=== PATIENT | female | born 1960 | race Caucasian/White ===

== ENCOUNTER 2017-01-23 10:56 | Emergency (ER) | payer OTHER ==
[~2017-01-23] VITALS: Ht 165.1 cm; Wt 90.3 kg
[~2017-01-23 10:56] MED LIST: CYCLOBENZAPRINE10 M1 PO; MEDROL4 M2 PO; PERCOCET 5-3251 EACH PO
[2017-01-23 11:00] VITALS: BP 128/85
--- NOTE | 2017-01-23 11:22 | ED THROAT/DENTAL COMPLAINT ---
History of Present Illness General Chief Complaint: Skin Rash/ Abcess Stated Complaint: ABCESS? INSIDE L SIDE OF MOUTH Source: patient, old records Exam Limitations: no limitations Vital Signs & Intake/Output Vital Signs & Intake/Output Vital Signs Date Time Temp Pulse Resp B/P B/P Pulse O2 O2 Flow FiO2 Mean Ox Delivery Rate 01/23 1100 97.4 116 20 128/85 97 Room Air Allergies Coded Allergies: tetanus and diphtheria toxoids (TETANUS & DIPHTHERIA TOXOIDS) (UNKNOWN 04/30/16) Reconcile Medications Amoxicillin 875 MG TABLET 1 TAB PO BID dental abscess Cyclobenzaprine HCl 10 MG TABLET 1 TAB PO TID PRN MUSCLE RELAXANT MAY CAUSE DROWSINESS Ibuprofen 600 MG TABLET 1 TAB PO Q6PRN PRN pain with food Methylprednisolone. (Medrol) 4 MG TAB.DS.PK 1 DP PO AD INFLAMMATION/back pain Oxycodone HCl/Acetaminophen (Percocet 5-325 MG Tablet) 1 EACH TABLET 1 TAB PO Q6H PRN PAIN Oxycodone HCl/Acetaminophen (Percocet 5-325 MG Tablet) 5 MG-325 MG TABLET 1-2 TAB PO 4 TIMES/DAY PRN sever pain Triage Note: PT STATES SHE THINKS SHE HAS AN ABSCESS LEFT SIDE OF MOUTH. PT STATES SHE DOESN'T HAVE A DENTIST. PAIN HAS BEEN INCREASING FOR THE PAST 3 DAYS Triage Nurses Notes Reviewed? yes Onset: Last week Duration: day(s):, constant, continues in ED Timing: remote history Injury Environment: home Severity: severe Modifying Factors: Improves With: medication. Worsens With: eating. LMP (ages 10-50): post menopausal : No Patient currently breastfeeds: No HPI: Patient reports having long standing dental issues reporting she was to have all her teeth extracted. 3 days [employer] she complains of increasing pain to the left upper molars with increasing swelling and redness to her cheek radiating to her left ear. She denies fever, chills, nausea, vomiting, diarrhea, abdominal pain, chest pain , shortness of breath, dysuria, headache, bleeding. Past History Travel History Traveled to [place] past 21 day No Medical History Any Pertinent Medical History? see below for history Musculoskeletal: CHRONIC BACK PAIN Surgical History Surgical History: tubal ligation Psychosocial History What is your primary language Samoan Tobacco Use: Quit >30 days ago ETOH Use: occasional use Illicit Drug Use: denies illicit drug use Family History Hx Contributory? No Review of Systems Review of Systems Constitutional: Reports: no symptoms. EENTM: Reports: see HPI, ear pain, mouth pain, tooth pain. Respiratory: Reports: no symptoms. Cardiovascular: Reports: no symptoms. GI: Reports: no symptoms. Genitourinary: Reports: no symptoms. Musculoskeletal: Reports: no symptoms. Skin: Reports: see HPI. Neurological/Psychological: Reports: no symptoms. Hematologic/Endocrine: Reports: no symptoms. Immunologic/Allergic: Reports: no symptoms. All Other Systems: Reviewed and Negative Physical Exam Physical Exam General Appearance: well developed/nourished, alert, awake, anxious, moderate distress, obese Head: atraumatic, swelling, tenderness (left cheek) Eyes: Bilateral: normal appearance, PERRL, EOMI. Ears: Bilateral: canal normal, Tympanic normal. Nose: normal inspection Mouth/Throat: pharynx normal, dental tenderness, maxillary swelling Neck: normal inspection, supple, full range of motion, trachea midline, lymphadenopathy (R), lymphadenopathy (L) Cardiovascular/Respiratory: normal breath sounds, normal peripheral pulses, regular rate/rhythm, no respiratory distress Back: normal inspection, normal range of motion Neurologic/Psych: no motor/sensory deficits, awake, alert, oriented x 3, normal gait, normal mood/affect Skin: intact, warm/dry Diagram Dental: 1) carious fractured teeth with surrounding gingival edema and tenderness Core Measures ACS in differential dx? No Severe Sepsis Present: No Septic Shock Present: No Progress Differential Diagnosis: carious tooth, odontogenic abscess, stomatitis/ gingivitis Plan of Care: antibiotics analgesia Departure Departure Time of Disposition: 1121 Disposition: HOME OR SELF CARE Condition: Stable Clinical Impression Primary Impression: Dental abscess Referrals: PETAR OCAMPO MD (PCP/Family) Departure Forms: Customer Survey General Discharge Information Prescriptions: Current Visit Scripts Amoxicillin 1 TAB PO BID #20 TAB Ibuprofen 1 TAB PO Q6PRN PRN pain #50 TAB with food Oxycodone HCl/Acetaminophen (Percocet 5-325 MG Tablet) 1-2 TAB PO 4 TIMES/DAY PRN sever pain #20 TAB
[2017-01-23] MEDS ORDERED: PERCOCET 5-3251 EACH PO (11:25)
[2017-01-23] MEDS ORDERED: AMOXICILLIN875 M1 PO (11:25)
[2017-01-23] MEDS ORDERED: IBUPROFEN600 M1 PO (11:25)
== END 2017-01-23 11:33 ==
LOC: ERH 10:56
DX: K04.7 Periapical abscess without sinus (principal)